=== PATIENT | male | born 1965 | race Caucasian/White ===

== ENCOUNTER 2018-09-21 08:54 | Day surgery (SDC) | payer BC ==
[~2018-09-21 08:54] MED LIST: CEFAZOLIN 2 Gram 2 GM/50 ML BAG IVPB ONE; CELECOXIB 100 MG CAPSULE PO ONE; FAMOTIDINE 20MG TABLET PO ONE; MECLIZINE 25 MG TABLET PO ONE; METOCLOPRAMIDE 10 MG TABLET PO ONE; VANCOMYCIN 1GM/200ML PREMIX 1 GM/200 ML PIGGYBACK IVPB ONE
[2018-09-21] MEDS ORDERED: DEXAMETHASONE 4 MG/ML 1ML VIAL IVP ONE (08:55)
[2018-09-21] MEDS ORDERED: TRANEXAMIC ACID 1,000 MG/10 ML ML IV ONE ×2 (08:55)
[2018-09-21] MEDS ORDERED: PROPOFOL 10 MG/ML VIAL IV ONE (08:55)
[2018-09-21] MEDS ORDERED: 0.9 % SODIUM CHLORIDE 10 ML VIAL IVP ONE (08:55)
[2018-09-21] MEDS ORDERED: MIDAZOLAM HCL 2MG/2ML VIAL IV ONE (08:55)
[2018-09-21] MEDS ORDERED: ROPIVACAINE HCL (NAROPIN) /PF 5MG/ML 20ML VIAL IV ONE (08:55)
[2018-09-21] MEDS ORDERED: LIDOCAINE 2% MDV (20MG/ML) 20ML VIAL IV ONE (08:55)
[2018-09-21] MEDS ORDERED: KETAMINE HCL 100MG/1ML VIAL INJ ONE (08:55)
[2018-09-21] MEDS ORDERED: KETOROLAC 30 MG/ML VIAL IVP ONE (08:55)
[2018-09-21] MEDS ORDERED: RINGERS SOLUTION,LACTATED 1,000 ML IV ONE ×2 (09:34→12:10)
[2018-09-21 10:00] LABS: ABO GROUP A; ANTIBODY SCREEN NEGATIVE (NEGATIVE); RH TYPE POSITIVE
[2018-09-21] MEDS ORDERED: BUPIVACAINE 0.5% W/EPI MPF 30 ML VIAL SQ ONE (11:58)
[2018-09-21] MEDS ORDERED: AL HYDROX/MAG HYDROX 30ML UD PO PRN (13:16)
[2018-09-21] MEDS ORDERED: ZOLPIDEM TARTRATE 5 MG TABLET PO PRN (13:16)
[2018-09-21] MEDS ORDERED: NALOXONE 0.4 MG/1 ML VIAL IVP PRN (13:16)
[2018-09-21] MEDS ORDERED: HYDROMORPHONE HCL 2 MG/ML VIAL IM PRN (13:16)
[2018-09-21] MEDS ORDERED: MAGNESIUM HYDROXIDE 30 ML UDC PO PRN (13:16)
[2018-09-21] MEDS ORDERED: DIPHENHYDRAMINE HCL 25 MG CAPSULE PO PRN (13:16)
[2018-09-21] MEDS ORDERED: BISACODYL 10 MG SUPP RC PRN (13:16)
[2018-09-21] MEDS ORDERED: ACETAMINOPHEN W/ CODEINE 300MG/60MG TABLET PO PRN ×2 (13:16)
[2018-09-21] MEDS ORDERED: TRAMADOL HCL 50 MG TABLET PO PRN (13:16)
[2018-09-21] MEDS ORDERED: ACETAMINOPHEN 325 MG TAB PO PRN (13:16)
[2018-09-21] MEDS ORDERED: KETOROLAC 30 MG/ML VIAL IVP PRN ×2 (13:16)
[2018-09-21] MEDS ORDERED: ONDANSETRON HCL IV 4 MG/2 ML VIAL IVP PRN (13:16)
[2018-09-21] MEDS: POTASSIUM CHLORIDE/D5-0.9%NACL 20 MEQ/1,000 ML BAG IV SCH ×2 (15:13→21:54)
[2018-09-21] MEDS: HYDROCODONE/APAP 10/325 TABLET PO PRN ×3 (15:43→21:49)
--- NOTE | 2018-09-21 16:45 | Rehab Evaluation ---
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 PMH - Hematology/Oncology Hx Hematology/Oncology No Disorders Premorbid Status: Detail (The patient was independent with all mobility prior to surgery) Social History: Detail (The patient lives with spouse in a one story house with one step at the enterance and no railings. The bathroom is equipped with: tub/shower combination,shower bench, standard height toilet . No grab bars are present in bathroom. The patient has crutches.) Precautions: [place], Fall, Other (WBAT as tolerated R LE.) - Time With Patient Total Time Spent With Patient (Min): 20 Treatment Procedures: Detail (Initial evaluation, low complexity, gait training) Subjective Information - Subjective Information Per Patient (The patient had no pain complaints.) Objective Data - Mental Status Patient Orientation: Oriented x3 - Visual Perception Appears within normal limits for therapeutic activities - ROM Not within normal limits (The patient's R knee AROM was limited s/p surgery. All other LE AROM was WNL.) - Strength/Tone Not within normal limits (The patient's R LE strength was not tested s/p surgery however strength was functional ie: patient was able to complete to lift R LE out of bed. The patient's L le strength was WNL.) - Bed Mobility Independent (The patient was independent with supine to and from sit transfer.) - Transfers Independent (The patient was independent with sit to and from stand transfer.) - Balance Balance Sitting: Good Balance Standing: Good - Gait Detail (The patient ambulated with crutches 30 feet x 1 with supervision for safety only. (The patient ambulated limited distance due to " strange sensation on R LE".) Therapy Assessment - Therapy Assessment Detail (The patient was independent with bed mobility and transfers and required supervision for safety with ambulation. Feel the patient will progress well with mobility.) Problem List - Problem List Physical Therapy Problem List: Detail ( Limited R knee AROM and decreased R LE strength as to be expected s/p surgery.) Goals - Goals Physical Therapy Goals: 1) The patient will ambulate with crutches WBAT on the R LE household distances independently. 2) The patient will ambulate on stairs with supervision for safety using proper technique. 3) The patient will be independent with TKA HEP. Prognosis - Prognosis Good Plan - Plan Physical Therapy Plan: PT 1-2 sessions for gait training on levels and stairs and instruction in HEP.
--- NOTE | 2018-09-21 17:31 | Operative Note ---
DATE OF SURGERY: 09/21/2018 PREOPERATIVE DIAGNOSIS: End-stage arthrosis of the right knee. POSTOPERATIVE DIAGNOSIS: End-stage arthrosis of the right knee. OPERATION: Cemented right total knee arthroplasty using [employer] Giovana II components with a size 8 Oxinium femur, a size 7 stemmed tibia baseplate, a 9 mm lipped highly crosslinked tibial insert, and a 35 mm all plastic patella. STAFF SURGEON: Reji Cabrales MD INTERNATIONAL PROJECT ENGINEER: Mrs. Ana Kumar ANESTHESIA: Spinal. PREPARATION: Chloraprep. INDIVIDUAL CONSIDERATIONS: None. PROCEDURE: The patient was taken to the operating room, placed supine on the operating room table. He had a successful induction of a spinal anesthetic. The right lower extremity was then prepped and draped in the usual fashion. The patient had a midline approach to the knee. The limb was elevated and tourniquet was inflated to 250 mmHg. Sharp dissection carried down through skin and subcutaneous tissue. Small veins were coagulated with a Bovie. A medial arthrotomy was performed. The patella was everted and the knee was flexed. The patient had exposed bone with bone loss in the medial and patellofemoral compartments with large osteophytes. Fat pad was resected, ACL was sacrificed, and provisional anterior meniscectomies were performed. The capsule was released from the medial proximal tibia. The initial femoral relief pilot hole was then made freehand. The intramedullary femoral cutting jig was placed. It was cut in 7.0 degrees of valgus and adjusted for rotation and secured with pins for a 10 mm resection. The initial transverse cut was then made. The skin guide was placed in the anterior and posterior relief pilot holes. It was found that a size 8 would be appropriate. The anterior and posterior cuts followed by chamfer cuts were made. Osteophytes removed, and a size 8 trial was placed and found to fit well. The tibia was brought forward, and the remainder of the meniscal remnants removed with a Bovie. The extraarticular tibial cutting jig was placed. It was cut in neutral with a 3-degree AP slope. Care was taken to adjust for rotation and flexion using the extraarticular alignment guide and bony landmarks. It was set for a 9 mm resection keyed off the high lateral side and secured with pins. When cutting the tibia, care was taken to preserve the PCL insertion on the tibia. After removing large medial osteophytes, I could fit a size 7 baseplate. It was adjusted for rotation and secured with pins. With a 9 mm trial and femoral trial, there was excellent motion and stability, ligamentous balance, rotation alignment, and patellofemoral tracking were normal even at this stage. Femoral relief pilot holes were impacted and tri-flange tibial stamp was impacted, and these trial components were removed. The patient had a large patella and roughly 9 mm of bone was removed freehand. I was easily able to fit a 35 patella. The 3 relief pilot holes were drilled. The tourniquet was let down briefly to get bleeders posteriorly and then placed back up again. The knee was then thoroughly irrigated out with pulsatile Betadine and saline to remove any visual or palpable debris. Bony surfaces were then dried. A size 7 stemmed tibia baseplate was cemented into place followed by impaction of the 9 mm lipped tibial insert followed by cementing in the size 8 Oxinium femur followed by cementing in the 35 mm patella. The implant surfaces were compressed, excess cement was removed. After the cement had set, there was excellent motion and stability, ligamentous balance, rotation alignment, and patellofemoral tracking were normal. After irrigation, tourniquet was let down. Hemostasis was obtained with a Bovie. The capsule and periosteum were infiltrated with 30 mL of 0.5% Marcaine with epinephrine. The capsule was then closed with a running #2 quill, subcu was closed in layers with running 0 quill, skin was closed with joy. The patient had 1 g of tranexamic acid mixed with 30 mL of saline. This was injected into the knee through a sterile 18-gauge needle, and a sterile bulky compressive LAURIE-type dressing was applied. The patient tolerated the procedure well. Needle and sponge counts were correct. Estimated blood loss was minimal, and he was taken back to recovery in good condition. There were no complications. WILLIAM
[2018-09-21] MEDS: CEFAZOLIN 2 Gram 2 GM/50 ML BAG IVPB SCH (18:45)
[2018-09-21] MEDS: DOCUSATE SODIUM 100 MG CAPSULE PO SCH (21:54)
[2018-09-22] MEDS: HYDROCODONE/APAP 10/325 TABLET PO PRN ×3 (02:39→11:55)
[2018-09-22] MEDS: CEFAZOLIN 2 Gram 2 GM/50 ML BAG IVPB SCH ×2 (02:40→11:04)
[2018-09-22 06:34] LABS: HEMATOCRIT 39.9 % (42.0-52.0); HEMOGLOBIN 13.8 gm/dl (14.0-18.0)
[2018-09-22 06:47] LABS: BLOOD UREA NITROGEN 14 mg/dL (6-20); CREATININE 0.7 mg/dL (0.7-1.2); EST GLOMERULAR FILTRATION RATE > 60 mL/min; GLUCOSE,RANDOM 121 mg/dL (74-109)
[2018-09-22] MEDS: POTASSIUM CHLORIDE/D5-0.9%NACL 20 MEQ/1,000 ML BAG IV SCH (07:02)
[2018-09-22] MEDS: DOCUSATE SODIUM 100 MG CAPSULE PO SCH (09:12)
[2018-09-22] MEDS ORDERED: PATIENT OWN MED: RANITIDINE 150 MG PO SCH (10:00)
[2018-09-22] MEDS ORDERED: FERROUS SULFATE 325 MG TAB PO SCH (10:00)
[2018-09-22] MEDS ORDERED: CETIRIZINE 10 MG PO SCH (10:00)
[2018-09-22] MEDS ORDERED: RIVAROXABAN 10 MG TABLET PO SCH (10:00)
--- NOTE | 2018-09-22 10:34 | Physical Therapy Tx Note ---
Physical Therapy Tx Note - Treatment Note Tolerated: Good Total Time Spent With Patient: 25 Physical Therapy Tx Note: Detail (Patient was reclined in bed upon AERONAUTICAL ENGINEERING OFFICER arrival. Patient states feeling pretty good this morning. Patient transferred supine to sit independently. Patient transferred sit to and from stand SBA x1. Patient ambulated 635 feet with crutches SBA x1. Patient descended and ascended 3 steps CGA x1. Patient transferred sit to supine independently. Patient performed the following exercises x10 reps each with patient supine reclined in bed: quad sets, glut squeezes, heel slides, ankle pumps, SLR, and hamstring sets. Patient tolerated treatment well. Patient displays good understanding of stair climbing, ambulation, and HEP. Patient was left reclined in bed with call light within reach. Patient discharged from inpatient PT at this time as all goals are met.) Physical Therapy Problem List: Detail ( Limited R knee AROM and decreased R LE strength as to be expected s/p surgery.) Physical Therapy Goals: 1) The patient will ambulate with crutches WBAT on the R LE household distances independently. Met. 2) The patient will ambulate on stairs with supervision for safety using proper technique. Met. 3) The patient will be independent with TKA HEP. Met Prognosis: Good Physical Therapy Plan: Patient discharged from inpatient PT at this time as all goals are met.
--- NOTE | 2018-09-22 11:20 | Rehab Evaluation ---
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 PMH - Hematology/Oncology Hx Hematology/Oncology No Disorders Premorbid Status: Detail (The patient was independent with all ADLs and functional mobility prior to surgery, driving and working.) Social History: Detail (The patient lives with spouse and two teenage sons in a one story house with one step at the entrance and no railings. Pt's bed/bath are on the main level. The bathroom is equipped with a tub/shower combination, shower bench, and elevated toilet seat. No grab bars are present in bathroom. 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 Pt agreeable to OT eval.) Objective Data - Pain Pain Present: Yes (Minimal, not quantified, just received pain meds.) - Mental Status Patient Orientation: Oriented x3 - Visual Perception Appears within normal limits for therapeutic activities - ROM Within normal limits (B UEs) - Strength/Tone Within normal limits (B UEs) - Coordination Appears within normal limits for therapeutic activities - Bed Mobility Independent (supine >< EOB) - Transfers Independent (Sit to/from stand from EOB to crutches with good balance and safety awareness.) - Balance Balance Sitting: Good Balance Standing: Good (Good-) - Sensation Intact - Gait Detail (Functional mobility within bedroom and to/from standard toilet with crutches MOD I, good balance and safety awareness.) - ADL's/IADL's Detail - Special Tests No Therapy Assessment - Therapy Assessment Detail (Pt demos good balance and safety awareness during ADLs and functional mobility, demos ability to LB dress without AE despite TKA, verbalizes understanding re: home safety. Rec DC home when medically ready.) Patient Education - Patient Education Teaching Topic: Exercise/Activity Response: Return Demonstration, Verbalize Understanding Teaching Method: Discussion, Demonstration Teaching Recipient: Patient Barriers To Learning: None Problem List - Problem List Physical Therapy Problem List: Detail ( Limited R knee AROM and decreased R LE strength as to be expected s/p surgery.) Occupational Therapy Problem List: Detail (No further skilled IP OT needs identified.) Goals - Goals Physical Therapy Goals: 1) The patient will ambulate with crutches WBAT on the R LE household distances independently. Met. 2) The patient will ambulate on stairs with supervision for safety using proper technique. Met. 3) The patient will be independent with TKA HEP. Met Occupational Therapy Goals: No further skilled IP OT needs/goals identified. Prognosis - Prognosis Good Plan - Plan Physical Therapy Plan: Patient discharged from inpatient PT at this time as all goals are met. Occupational Therapy Plan: No further skilled IP OT needs identified. DC OT services. Thank you for this referral.
== END 2018-09-22 14:17 | disposition home health service (06) ==
LOC: SUR 08:54 → MEDSURG 14:14 → SUR 09-22 14:17
PROVIDERS: ATTEND Orthopaedic Surgery
DX: M17.11 Unilateral primary osteoarthritis, right knee (principal); K21.9 Gastro-esophageal reflux disease without esophagitis; I10 Essential (primary) hypertension
CPT/HCPCS: 76942; 80048; 85014; 85018; 86850; 86900; 86901; J1885; J3370; J3480; J3490; J7120